=== PATIENT | female | born 1955 | race Two or more races ===

== ENCOUNTER 2024-06-22 10:59 | Emergency (ER) | payer OTHER, SELFPAY ==
[2024-06-22 11:04] VITALS: BP 164/108; PULSE 86; RESP 18; TEMP 36.6; O2SAT 97
--- NOTE | 2024-06-22 11:18 | XR_ITS ---
Examination: Knee, left , 3 views Technique: Knee AP, lateral, oblique 3 views Date and time of exam: June 22, 2024 11:47 AM INDICATIONS: Left knee swelling and pain 3 years FINDINGS: Advanced tricompartment osteoarthritis Severe osteopenia Small knee effusion No fracture IMPRESSION: Advanced tricompartment osteoarthritis
--- NOTE | 2024-06-22 11:20 | XR_ITS ---
Examination: Duplex scan of the lower extremity, unilateral left Date and time of exam: June 14, 2024 1159 hours INDICATIONS: Left leg swelling and pain beginning 4 days ago Technique: Duplex scan of the extremity veins using B-mode/grayscale imaging and Doppler spectral analysis and color flow Attention is directed to internal echogenicity, compression and augmentation involving these veins, color flow assessment, spectral analysis Findings: Major deep venous structures in the extremity demonstrate normal course and caliber. There is no evidence of deep vein thrombosis. Normal color flow and spectral analysis Impression: Negative for DVT..
[2024-06-22 11:32] VITALS: BP 131/90; PULSE 85; RESP 18; O2SAT 95
[2024-06-22 11:46] LABS: Lactate (Lactic Acid) 1.3 mMol/L (0.4-2.0)
[2024-06-22 12:26] LABS: C-Reactive Protein < 0.5 mg/dL (0.0-0.9); Procalcitonin 0.06 ng/ml (0.0-0.49); Uric Acid 6.1 mg/dL (3.1-7.8)
[2024-06-22 12:30] VITALS: BMI 29.7
[2024-06-22 12:41] LABS: Collection Type, Urine Clean Catch
[2024-06-22 12:51] LABS: Bilirubin,Urine Negative (Negative); Blood,Urine Negative (Negative); Color,Urine Lt-Yellow (Lt Yel-Yel); Culture Indicated,Urine Not Indicated; Glucose, Urine Negative (Negative); Ketones,Urine Negative (Negative); Leukocyte Esterase,Urine Negative (Negative); Nitrite,Urine Negative (Negative); Protein,Urine Negative (Neg - Trace); RBC,Urine 10 /hpf (0-3); Squamous Epithelial Cell,Urine < 1 /hpf (0-5); Urobilinogen,Urine Negative mg/dL (0.0-1.0); WBC,Urine 2 /hpf (0-5)
[2024-06-22 13:02] LABS: Clarity,Urine Hazy (Clear/Hazy)
[2024-06-22 13:06] LABS: Sed Rate (ESR) 8 mm/hr (0-30)
[2024-06-22 13:13] LABS: Basophils % (Auto) 0 % (0-2.5); Eosinophils # (Auto) 0.2 Thou/mm3 (0.0-0.5); Eosinophils % (Auto) 2 % (0-10); Hematocrit 38.3 % (36.0-46.0); Hemoglobin 13.3 g/dL (12.0-16.0); Immature Granulocytes % (Auto) 0 % (0-0); Immature Granulocytes Auto 0.02 Thou/mm3 (0.00-0.00); Lymphocytes # (Auto) 1.9 Thou/mm3 (1.0-4.8); Lymphocytes % (Auto) 25 % (10-50); Mean Corpuscular HGB Conc 34.7 g/dl (31.0-37.0); Mean Corpuscular Hemoglobin 29.1 pg (25.0-35.0); Mean Corpuscular Volume 84 fL (80-100); Monocytes # (Auto) 0.4 Thou/mm3 (0.0-0.8); Monocytes % (Auto) 6 % (0-12); Neutrophils % (Auto) 66 % (37-80); Nucleated Red Blood Cell % 0 /100 WBC (0); Platelet Count 223 Thou/mm3 (140-440); RDW Standard Deviation 40.3 fL (36.4-46.3); Red Blood Count 4.57 Miln/mm3 (4.00-5.20); White Blood Count 7.6 Thou/mm3 (3.6-11.0)
[2024-06-22 13:16] LABS: Chloride 106 mMol/L (98-107); Potassium 4.1 mMol/L (3.4-5.1); Sodium 140 mMol/L (136-145)
[2024-06-22 13:54] VITALS: BP 148/93; PULSE 73; RESP 15; TEMP 36.4; O2SAT 96
[2024-06-22 14:12] LABS: Alanine Aminotransferase 22 U/L (10-49); Albumin/Globulin Ratio 1.5 (1.2-2.2); Alkaline Phosphatase 107 U/L (46-116); Anion Gap 12 (7-16); Aspartate Amino Transferase 21 U/L (0-34); BUN/Creatinine Ratio 17 Ratio (12-20); Bilirubin,Total 0.9 mg/dL (0.3-1.2); Blood Urea Nitrogen 12 mg/dL (9-23); Calcium 9.3 mg/dL (8.3-10.6); Calcium (Corrected) 9.3 mg/dL (8.5-10.1); Carbon Dioxide 22.2 mMol/L (20.0-31.0); Creatinine (Component) 0.7 mg/dL (0.6-1.3); Estimated Creatinine Clearance 82.6 mL/min (>60); Globulin 2.7 gm/dL (2.3-3.5); Glucose 149 mg/dL (74-106); Osmolality,Calculated 282 (275-295); Total Protein 6.7 gm/dL (5.7-8.2); eGFR > 60 See Note
--- NOTE | 2024-06-22 16:42 | PD.EDEXREM ---
ED Extremity Problem RME/HPI General Chief complaint: Extremity Injury, Lower Stated complaint: LEFT KNEE SWELLING/PAIN X 2 DAYS; NEED DRAIN Time Seen by Provider: 06/22/24 11:18 Arrival date/time: 06/22/24 10:59 RME / HPI RME / HPI Narrative: 68 year old female with history of hypertension presents to the ED sent by ortho Dr. Dsouza for further evaluation of left knee swelling and pain beginning 2 days ago. Patient reports she has had problems with left knee pain and swelling x 2 days Related Data Home Medications ?Medication ?Instructions ?Recorded ?Confirmed omeprazole 20 mg capsule,delayed 20 mg PO QDAY 02/14/19 06/29/22 release candesartan 16 mg tablet 16 mg PO QDAY 05/14/21 06/29/22 multivitamin 1 tab PO QDAY 05/14/21 06/29/22 Allergies Allergy/AdvReac Type Severity Reaction Status Date / Time No Known Drug Allergies Allergy Unknown Verified 06/22/24 11:01 Course Orders Category Date Time Status US venous doppler LE LT Stat Exams 06/22/24 11:20 Completed XR knee LT 3V Stat Exams 06/22/24 11:18 Completed CBC Stat Lab 06/22/24 11:37 Completed CRP [C-Reactive Protein] Stat Lab 06/22/24 11:37 Completed Comprehensive Metabolic Panel Stat Lab 06/22/24 11:37 Completed ESR [Sed Rate (ESR)] Stat Lab 06/22/24 11:37 Completed Lactate (Lactic Acid) Stat Lab 06/22/24 11:37 Completed Procalcitonin Stat Lab 06/22/24 11:37 Completed UA, C/S IF [Urinalysis, C/S if Indicated] Stat Lab 06/22/24 12:29 Completed Uric Acid Stat Lab 06/22/24 11:37 Completed Vital Signs Vital signs: Vital Signs Temperature 98 F 06/22/24 11:04 Pulse Rate 86 06/22/24 11:04 Respiratory Rate 18 06/22/24 11:04 Blood Pressure 164/108 H 06/22/24 11:04 Pulse Oximetry (%) 97 06/22/24 11:04 Oxygen Delivery Method Room Air 06/22/24 11:04 Discharge Plan Plan Patient Disposition: HOME (Self Care) Prescriptions/Referrals Prescriptions/Med Rec: No Action candesartan 16 mg tablet 16 mg PO QDAY multivitamin Tablet 1 tab PO QDAY omeprazole 20 mg Capsule,Delayed Release(Dr/Ec) 20 mg PO QDAY Referrals: Kunal Dsouza MD [Primary Care Provider] - In 1 week Problem List Clinical Impression: Knee pain, left, Arthritis of knee, left Patient/Caregiver Discharge Instructions Education Materials: Knee Osteoarthritis Print Language: Vietnamese Stand Alone Forms: Lisa Award Info., Patient Portal Info Letter
== END 2024-06-22 14:04 | disposition home or self-care (01) ==
PROVIDERS: Emergency Provider Emergency Medicine; PCP Orthopaedic Surgery
DX: M17.12 Unilateral primary osteoarthritis, left knee (principal); M79.89 Other specified soft tissue disorders
CPT/HCPCS: 36415; 73562; 80053; 81001; 83605; 84145; 84550; 85025; 85652; 86140; 93971; 99284